=== PATIENT | male | born 1965 | race Two or more races ===

== ENCOUNTER 2018-05-26 08:29 | Day surgery (SDC) | payer OTHER | END 2018-05-26 16:20 | disposition home or self-care (01) | LOC: CIR.AMB 08:29 | DX: C02.8 Malignant neoplasm of overlapping sites of tongue (principal) | CPT/HCPCS: 36561; C1751 ==

== ENCOUNTER 2018-05-29 00:25 | Inpatient (IN) | payer OTHER ==
[~2018-05-29] VITALS: Ht 177.8 cm; Wt 64.4 kg
[2018-05-29] MEDS ORDERED: AMOXICILLIN500 MG (00:36)
== END 2018-06-04 15:48 | disposition home or self-care (01) | DRG 357 ==
LOC: ER 00:25 → SURH 09:04 → SEC-K 09:04 → O/R 10:49 → SURH 16:01
PROVIDERS: ADMIT Surgery
PROC: BW21ZZZ Computerized Tomography (CT Scan) of Abdomen and Pelvis (ICD-10-PCS; 2018-05-29)
PROC: 0DQV0ZZ Repair Mesentery, Open Approach (ICD-10-PCS; principal; 2018-05-29 10:00)
DX: K56.51 Intestinal adhesions [bands], with partial obstruction (principal); K45.0 Other specified abdominal hernia with obstruction, without gangrene; C02.0 Malignant neoplasm of dorsal surface of tongue; C10.3 Malignant neoplasm of posterior wall of oropharynx; Z85.72 Personal history of non-Hodgkin lymphomas

== ENCOUNTER 2020-06-05 09:32 | Outpatient (CLI) | payer OTHER ==
[~2020-06-05 09:32] MED LIST: AMOXICILLIN500 MG
== END 2020-06-05 09:34 | disposition home or self-care (01) ==
LOC: SONOGRAMA 09:32
PROVIDERS: ATTEND Pathology Anatomic Pathology & Clinical Pathology
DX: C77.0 Secondary and unspecified malignant neoplasm of lymph nodes of head, face and neck (principal); C10.3 Malignant neoplasm of posterior wall of oropharynx; C02.0 Malignant neoplasm of dorsal surface of tongue

== ENCOUNTER 2021-09-07 15:37 | Inpatient (IN) | payer OTHER ==
[~2021-09-07] VITALS: Ht 177.8 cm; Wt 47.6 kg
== END 2021-09-16 15:48 | disposition home or self-care (01) | DRG 4 ==
LOC: MEDI 15:37
PROVIDERS: Otolaryngology Otology & Neurotology; Surgery; ADMIT Internal Medicine Hematology & Oncology; ATTEND Internal Medicine Hematology & Oncology
PROC: BW2FYZZ Computerized Tomography (CT Scan) of Neck using Other Contrast (ICD-10-PCS; 2021-09-07)
PROC: B020YZZ Computerized Tomography (CT Scan) of Brain using Other Contrast (ICD-10-PCS; 2021-09-07)
PROC: 3E0336Z Introduction of Nutritional Substance into Peripheral Vein, Percutaneous Approach (ICD-10-PCS; 2021-09-08)
PROC: 0B110F4 Bypass Trachea to Cutaneous with Tracheostomy Device, Open Approach (ICD-10-PCS; principal; 2021-09-11 13:15)
PROC: 0DH60UZ Insertion of Feeding Device into Stomach, Open Approach (ICD-10-PCS; 2021-09-11 13:15)
DX: L98.498 Non-pressure chronic ulcer of skin of other sites with other specified severity (principal); E44.0 Moderate protein-calorie malnutrition; C01 Malignant neoplasm of base of tongue; C10.3 Malignant neoplasm of posterior wall of oropharynx; L08.89 Other specified local infections of the skin and subcutaneous tissue; B95.61 Methicillin susceptible Staphylococcus aureus infection as the cause of diseases classified elsewhere; B96.4 Proteus (mirabilis) (morganii) as the cause of diseases classified elsewhere; E83.52 Hypercalcemia; E86.0 Dehydration; R13.12 Dysphagia, oropharyngeal phase